=== PATIENT | male | born 1980 | race Caucasian/White ===

== ENCOUNTER 2016-07-24 07:44 | Emergency (ER) | payer SELFPAY ==
[~2016-07-24 07:44] MED LIST: Sodium Chloride 0.9% 1,000 ML BAG ONE
[2016-07-24] MEDS ORDERED: Dexamethasone 10 MG/ML VIAL ONE (08:18)
[2016-07-24] MEDS ORDERED: methylPREDNISolone Sod Succ/PF 125 MG/2 ML VIAL ONE (08:18)
[2016-07-24] MEDS ORDERED: diphenhydrAMINE HCl 50 MG/ML 1 ML VIAL ONE (08:18)
[2016-07-24] MEDS ORDERED: Ketorolac Tromethamine 30 MG/ML VIAL ONE (08:18)
[2016-07-24 08:19] LABS: #Basophils 0.1 thou/uL (0.0-0.2); #Lymphocytes 1.3 thou/uL (1.20-3.40); #Monocytes 0.8 thou/uL (0.11-0.59); #Neutrophils 11.4 thou/uL (1.40-6.50); %Basophils 0.4 % (0.0-1.0); %Eosinophils 0.2 % (0.0-10.0); %Lymphocytes 9.5 % (21.0-51.0); %Monocytes 5.7 % (0.0-10.0); %Neutrophils 84.2 % (42.0-75.0); Hemoglobin 15.8 g/dL (14.0-18.0); Mean Corpuscular HGB CONC 33.9 g/dL (32.0-36.0); Mean Corpuscular Hemoglobin 30.2 pg (27.0-31.0); Mean Platelet Volume 9.2 fL (7.4-10.4); Platelet Count 184 thou/uL (130-400); Red Blood Cell (RBC) Count 5.25 mill/uL (4.70-6.10); White Blood Cell (WBC) Count 13.5 thou/uL (4.8-10.8)
[2016-07-24 08:47] LABS: ALT (SGPT) 13 U/L (8-55); AST (SGOT) 12 U/L (5-34); Albumin 4.7 g/dL (3.5-5.0); Alkaline Phosphatase 52 U/L (40-150); Anion Gap 15 mmol/L (10-20); BUN (Urea Nitrogen) 12 mg/dL (8.9-20.6); Bilirubin, Total 1.9 mg/dL (0.2-1.2); CK (CPK) 207 U/L (30-200); Calc. Creatinine Clearance 0 mL/min (70-130); Calcium 9.4 mg/dL (7.8-10.44); Carbon Dioxide 26 mmol/L (22-29); Chloride 105 mmol/L (98-107); Estimated GFR-MDRD 84; Globulin 2.8 g/dL (2.4-3.5); Glucose 90 mg/dL (70-105); Potassium 3.9 mmol/L (3.5-5.1); Protein, Total 7.5 g/dL (6.0-8.3); Sodium 142 mmol/L (136-145)
[2016-07-24 08:48] LABS: CKMB 1.3 ng/mL (0-6.6); Troponin I Less than 0.010 ng/mL (< 0.028)
--- NOTE | 2016-07-24 08:48 | RAD ---
PORTABLE AP CHEST: Date: 07/24/16 HISTORY: Chest pain. FINDINGS: Cardiac silhouette and pulmonary vasculature are within normal limits. Lungs are clear. Osseous stru ctures are intact. IMPRESSION: No acute cardiopulmonary process. POS: [facility]
[2016-07-24 08:51] LABS: PTT 31.7 SEC (22.9-36.1); Prothrombin Time 13.3 SEC (12.0-14.7)
[2016-07-24 09:14] LABS: D-Dimer Test Less than 0.27 *mcg/mL (0.27-0.43)
[2016-07-24 09:22] LABS: Bilirubin Negative (Negative); Blood, Urine Negative (Negative); Clarity Clear (Clear); Glucose, Urine (Dipstick) Negative (Negative); Leukocyte Negative (Negative); Nitrite Negative (Negative); Protein, Urine (Dipstick) Negative (Neg-Trace); RBC/HPF 0-3 HPF (0-3); Squamous Epithelial 0-3 HPF (0-3); Urobilinogen 0.2 mg/dL (0.2-1.0); WBC/HPF 0-3 HPF (0-3)
[2016-07-24 09:23] LABS: Bacteria/HPF Rare-Few HPF (None Seen)
[2016-07-24 09:32] LABS: Amphetamine Not Detected (NotDetected); Barbiturates Screen Not Detected (NotDetected); Benzodiazepine Screen Not Detected (NotDetected); Cocaine Metabolite Screen Not Detected (NotDetected); Medtox Control Line Valid? VALID (VALID); Methadone Not Detected (NotDetected); Methamphetamine Not Detected (NotDetected); Opiate Screen Not Detected (NotDetected); Oxycodone Screen Not Detected (NotDetected); Phencyclidine (PCP) Not Detected (NotDetected); THC/Cannabinoid Screen Not Detected (NotDetected); Tricyclic Screen Not Detected (NotDetected)
[2016-07-24 09:33] LABS: Acetaminophen Less than 6.0 mcg/mL (10.0-30.0); Alcohol Less than 10 mg/dL (Less than 10); Salicylate Less than 8.0 mg/dL (15.0-30.0)
[2016-07-24] MEDS ORDERED: HYDROcodone/Acetaminophen 10/325 mg Tablet ONE (09:58)
== END 2016-07-24 10:17 | disposition home or self-care (01) ==
LOC: MADERS 07:44
DX: R07.81 Pleurodynia (principal)
CPT/HCPCS: 71010; 80053; 80306; 80307; 81001; 82553; 83880; 84484; 85025; 85379; 85610; 85730; 86140; 87086; 93005; 96361; 96374; 96375; J1100; J1200; J1885; J2930; J7050